=== PATIENT | male | born 1965 | race Two or more races ===

== ENCOUNTER 2019-01-06 13:02 | Emergency (ER) | payer BC ==
[~2019-01-06] VITALS: Ht 182.9 cm; Wt 86.2 kg
[2019-01-06 13:15] VITALS: BP 121/81
--- NOTE | 2019-01-06 14:02 | NUR ---
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
--- NOTE | 2019-01-06 14:03 | NUR ---
ALYX GARCIA AT BEDSIDE FOR EVAL.
[2019-01-06] MEDS ORDERED: KETOROLAC TROMETHAMINE INJ 30 MG/ML VIAL ONE (14:20)
[2019-01-06] MEDS: KETOROLAC TROMETHAMINE INJ 60 MG/2 ML VIAL IM ONE (14:30)
--- NOTE | 2019-01-06 14:31 | NUR ---
TORADOL 30MG 1ML GIVEN IM ON LEFT SHOULDER. WAITING FOR PATIENT'S RESPONSE TO MEDICATION.
[2019-01-06] MEDS ORDERED: ACETAMINOPHEN ES 500 MG TABLET ONE (15:31)
[2019-01-06] MEDS: ACETAMINOPHEN 325 MG TABLET PO ONE (15:33)
--- NOTE | 2019-01-06 15:43 | NUR ---
Patient discharged to home in stable condition. Written and verbal after care instructions given. Patient verbalizes understanding of instruction.
== END 2019-01-06 15:44 | disposition home or self-care (01) ==
LOC: ER 13:06
DX: S16.1XXA Strain of muscle, fascia and tendon at neck level, initial encounter (principal); S39.012A Strain of muscle, fascia and tendon of lower back, initial encounter; R07.89 Other chest pain; R51 Headache; Z90.49 Acquired absence of other specified parts of digestive tract; V49.49XA Driver injured in collision with other motor vehicles in traffic accident, initial encounter; Y93.89 Activity, other specified; Y92.488 Other paved roadways as the place of occurrence of the external cause; Y99.8 Other external cause status
CPT/HCPCS: 71045; 96372; 99283; J1885